=== PATIENT | female | born 1955 | race Caucasian/White ===

== ENCOUNTER 2017-09-05 12:50 | Emergency (ER) | payer OTHER ==
[~2017-09-05] VITALS: Ht 160 cm; Wt 70.3 kg
--- NOTE | 2017-09-05 15:02 | Diagnostic Imaging Report ---
LOWER LEG RIGHT - 3 views HISTORY: Fracture. COMPARISON: None available. FINDINGS: Bones: Distal portion of a femoral intramedullary lorie is visualized. No acute displaced fracture. Osseous alignment is within normal limits. Joints: Marked narrowing of the medial compartment of the knee, possibly degenerative. Ill-defined medial tibial plateau on the lateral view. Soft tissues: The soft tissues appear unremarkable. IMPRESSION: No acute displaced fracture. Degenerative changes involving the medial compartment. If acute pain in the medial knee, suggest CT exam examination without contrast to exclude acute traumatic injury. Signed by: Dr. Roverto Singleton M.D. on 09/05/2017 2:58 PM
== END 2017-09-05 16:23 | disposition home or self-care (01) ==
LOC: ER 12:50
DX: G89.11 Acute pain due to trauma (principal); S80.11XA Contusion of right lower leg, initial encounter; W22.09XA Striking against other stationary object, initial encounter; Y92.008 Other place in unspecified non-institutional (private) residence as the place of occurrence of the external cause
CPT/HCPCS: 93971; 99283